=== PATIENT | male | born 1970 | race Caucasian/White ===

== ENCOUNTER → 2023-09-11 20:23 | Outpatient (REF) | payer OTHER, SELFPAY | LOC: MRI 20:23 | PROVIDERS: ATTENDING PHYSICIAN Orthopaedic Surgery Sports Medicine; FAMILY PHYSICIAN Internal Medicine | DX: M25.552 Pain in left hip (principal); M16.12 Unilateral primary osteoarthritis, left hip | CPT/HCPCS: 73721 ==